=== PATIENT | male | born 1980 | race Caucasian/White ===

== ENCOUNTER → 2016-12-14 | Outpatient (CLI) | payer OTHER | LOC: BMCIMAGING 10:45 | PROVIDERS: ATTEND Internal Medicine | DX: R50.9 Fever, unspecified (principal); M79.1 Myalgia ==

== ENCOUNTER 2016-12-15 08:01 | Emergency (ER) | payer OTHER ==
--- NOTE | 2016-12-15 09:35 | EDPHY ---
H & P Stated Complaint: fever body aches for 5 day s - Personal History Current Tetanus/Diphtheria Vaccine: Yes Current Tetanus Diphtheria and Acellular Pertussis (TDAP): Yes - Medical/Surgical History Hx Asthma: No Hx Chronic Respiratory Disease: No Hx Diabetes: No Hx Cardiac Disease: No Hx Renal Disease: No Hx Cirrhosis: No Hx Alcoholism: No Hx HIV/AIDS: No Hx Splenectomy or Spleen Trauma: No - Social History Smoking Status: Never smoked HPI/ROS: Chief complaint: Cold symptoms History of present illness: 36-year-old male presents to the emergency department for cold symptoms. Patient reports the onset of symptoms 5 days ago. Symptoms have been persistent. He reports fevers, headache, body aches. He denies precipitating factors. He has used ibuprofen which helped some but has not resolve the problem. He denies other associated signs or symptoms including no ear pain, runny nose, sore throat cough, trouble breathing or rash. Review of systems: A 10 point review of systems was obtained and other than described above was negative (Robert Parks) - Physical Exam Exam: General Appearance: Alert, nontoxic. Eyes: Pupils equal and round no pallor or injection. ENT, Mouth: Tympanic membranes, external auditory canals, external ears and surrounding soft tissue including over the mastoids are unremarkable. Nasopharynx is not injected. There is no rhinorrhea. Oropharynx is mildly injected. There is no edema. There is no exudate. There is no asymmetry. The uvula is midline. No elevation of the tongue. There is no hoarseness, no drooling, no trismus, no stridor. Respiratory: There are no retractions, lungs are clear to auscultation. Cardiovascular: Regular rate and rhythm. Gastrointestinal: Abdomen is soft and nontender, no masses, bowel sounds normal. Neurological: Alert and oriented x4. Strength and sensation intact and symmetrical. No meningeal signs. Skin: Warm and dry, no rashes. Musculoskeletal: Neck is supple nontender. Extremities are symmetrical, full range of motion. Psychiatric: Patient is oriented X 3, there is no agitation. (Robert Parks) Constitutional: Initial Vital Signs Temperature (C) 36.6 C 12/15/16 08:03 Heart Rate 59 L 12/15/16 08:03 Respiratory Rate 16 12/15/16 08:03 Blood Pressure 120/55 L 12/15/16 08:03 O2 Sat (%) 97 12/15/16 08:03 O2 Delivery Mode Room Air Allergies/Adverse Reactions: No Known Allergies Allergy (Unverified 12/15/16 08:05) Home Medications: Medication Instructions Recorded Hydrocodone/APAP [Sedgwick 1 tab PO Q6H #6 tab 12/15/16 5325 (*)] Medical Decision Making - Diagnostics Imaging: I viewed and interpreted images myself - Diagnostics Imaging Results: Imaging Impressions Chest X-Ray 12/15/16 09:34 Impression: Stable and normal. No pneumonia. ED Course/Re-evaluation: The patient was evaluated and managed by the physician's blood and plasma laboratory assistant. My cosignature indicates that I reviewed the chart and I agree with the findings and plan of care as documented. I am the secondary supervising physician. ( Letitia So) Patient seen in conjunction with my secondary supervising physician Dr. Letitia So. Patient presents to the emergency department for cold symptoms. He is nontoxic. Afebrile and vital signs are stable. Physical exam is benign including no meningeal signs. Workup is unremarkable. Likely viral syndrome. Patient will be discharged home. Home care is discussed. He is asked to follow up with his primary care doctor for recheck. Return precautions are given. Patient voiced understanding and agreement with plan. (Robert Parks) Differential Diagnosis: Included but not limited to upper respiratory tract infections, lower respiratory tract infections, influenza, unlikely meningitis given lack of fever and meningeal symptoms (Robert Parks) - Data Points Laboratory Results: Laboratory Results 12/15/16 09:40 12/15/16 09:40 12/15/16 12/15/16 12/15/16 Unknown 09:40 09:40 WBC 5.88 10^3/uL 10^3/uL (3.80-9.50) RBC 4.71 10^6/uL 10^6/uL (4.40-6.38) Hgb 15.2 g/dL g/dL (13.7-17.5) Hct 42.8 % % (40.0-51.0) MCV 90.9 fL fL (81.5-99.8) MCH 32.3 pg pg (27.9-34.1) MCHC 35.5 g/dL g/dL (32.4-36.7) RDW 12.0 % % (11.5-15.2) Plt Count 151 10^3/uL 10^3/uL (150-400) MPV 11.3 fL fL (8.7-11.7) Neut % (Auto) 81.7 % H % (39.3-74.2) Lymph % (Auto) 9.9 % L % (15.0-45.0) [place] % (Auto) 8.0 % % (4.5-13.0) Eos % (Auto) 0.0 % L % (0.6-7.6) Baso % (Auto) 0.2 % L % (0.3-1.7) Nucleat RBC Rel Count 0.0 % % (0.0-0.2) Absolute Neuts (auto) 4.81 10^3/uL 10^3/uL (1.70-6.50) Absolute Lymphs (auto) 0.58 10^3/uL L 10^3/uL (1.00-3.00) Absolute Monos (auto) 0.47 10^3/uL 10^3/uL (0.30-0.80) Absolute Eos (auto) 0.00 10^3/uL L 10^3/uL (0.03-0.40) Absolute Basos (auto) 0.01 10^3/uL L 10^3/uL (0.02-0.10) Absolute Nucleated RBC 0.00 10^3/uL 10^3/uL (0-0.01) Immature Gran % 0.2 % % (0.0-1.1) Immature Gran # 0.01 10^3/uL 10^3/uL (0.00-0.10) Sodium 133 mEq/L L mEq/L (134-144) Potassium 4.6 mEq/L mEq/L (3.5-5.2) Chloride 96 mEq/L L mEq/L (97-110) Carbon Dioxide 27 mEq/l mEq/l (22-31) Anion Gap 10 mEq/L mEq/L (8-16) BUN 18 mg/dL mg/dL (7-23) Creatinine 0.8 mg/dL mg/dL (0.7-1.3) Estimated GFR > 60 Glucose 102 mg/dL H mg/dL (70-100) Calcium 9.1 mg/dL mg/dL (8.5-10.4) Influenza A & B (PCR) Group A Strep Screen Group A Strep DNA Pending 12/15/16 12/15/16 09:20 09:20 WBC RBC Hgb Hct MCV MCH MCHC RDW Plt Count MPV Neut % (Auto) Lymph % (Auto) [place] % (Auto) Eos % (Auto) Baso % (Auto) Nucleat RBC Rel Count Absolute Neuts (auto) Absolute Lymphs (auto) Absolute Monos (auto) Absolute Eos (auto) Absolute Basos (auto) Absolute Nucleated RBC Immature Gran % Immature Gran # Sodium Potassium Chloride Carbon Dioxide Anion Gap BUN Creatinine Estimated GFR Glucose Calcium Influenza A & B (PCR) NEGATIVE FOR FLU (NEGATIVE) Group A Strep Screen NEGATIVE (NEGATIVE) Group A Strep DNA Medications Given: Discontinued Medications Ibuprofen (Motrin) 600 mg PO EDNOW ONE Stop: 12/15/16 11:33 Last Admin: 12/15/16 11:40 Dose: 600 mg Departure - Departure Disposition: Home, Routine, Self-Care Clinical Impression: Viral syndrome Condition: Good Instructions: Viral Syndrome (ED) Additional Instructions: Follow-up with your primary care doctor for recheck this week In regards to pain control see the following: Use ibuprofen [600] mg [3] times a day for the next 2-3 days for pain In addition You have been prescribed [Sedgwick] for pain. [Sedgwick] contains Tylenol, do not take extra Tylenol/acetaminophen/Apap with it. It is sedating. If symptoms worsen or new symptoms develop return to the emergency room for recheck Referrals: Ector Santana MD [Primary Care Provider] - As per Instructions Prescriptions: Hydrocodone/APAP 5/325 [[place] 5/325 (*)] 1 tab PO Q6H #6 tab
[2016-12-15 09:56] LABS: % IMMATURE GRANULYOCYTES 0.2 % (0.0-1.1); ABSOLUTE IMMATURE GRANULOCYTES 0.01 10^3/uL (0.00-0.10); ADD DIFF? NO; ADD MORPH? NO; ADD SCAN? NO; ATYPICAL LYMPHOCYTE FLAG 0 (0-99); FRAGMENT RBC FLAG 0 (0-99); HEMATOCRIT 42.8 % (40.0-51.0); HEMOGLOBIN 15.2 g/dL (13.7-17.5); LEFT SHIFT FLG 40 (0-99); LIPEMIA HEMOLYSIS FLAG 90 (0-99); MEAN CELL HEMOGLOBIN 32.3 pg (27.9-34.1); MEAN CELL HEMOGLOBIN CONCENTR. 35.5 g/dL (32.4-36.7); MEAN CELL VOLUME 90.9 fL (81.5-99.8); MEAN PLATELET VOLUME 11.3 fL (8.7-11.7); PLATELET CLUMPS FLAG 0 (0-99); PLATELET COUNT 151 10^3/uL (150-400); RED BLOOD CELL COUNT 4.71 10^6/uL (4.40-6.38)
[2016-12-15 10:18] LABS: ANION GAP 10 mEq/L (8-16); CALCIUM 9.1 mg/dL (8.5-10.4); CARBON DIOXIDE 27 mEq/l (22-31); CHLORIDE 96 mEq/L (97-110); CREATININE 0.8 mg/dL (0.7-1.3); GLOMERULAR FILTRATION RATE > 60; GLUCOSE 102 mg/dL (70-100); POTASSIUM 4.6 mEq/L (3.5-5.2); SODIUM 133 mEq/L (134-144)
[2016-12-15 11:32] VITALS: BP 125/68; PULSE 54; RESP 18; TEMP 98.2; O2SAT 98
[2016-12-15] MEDS ORDERED: IBUPROFEN 600 MG TAB PO ONE (11:32)
== END 2016-12-15 11:57 | disposition home or self-care (01) ==
DX: B34.9 Viral infection, unspecified (principal)

== ENCOUNTER → 2018-03-09 | Outpatient (CLI) | payer OTHER | LOC: BMCIMAGING 08:10 | PROVIDERS: ATTEND Psychiatry & Neurology Neurology | DX: R10.11 Right upper quadrant pain (principal); K87 Disorders of gallbladder, biliary tract and pancreas in diseases classified elsewhere ==

== ENCOUNTER → 2018-05-01 | Outpatient (CLI) | payer OTHER | LOC: FIMAGING 08:37 | PROVIDERS: ATTEND Physician Assistant | DX: K21.9 Gastro-esophageal reflux disease without esophagitis (principal) | CPT/HCPCS: A9537 ==

== ENCOUNTER → 2018-08-16 | Outpatient (CLI) | payer OTHER | LOC: BMCIMAGING 13:58 | PROVIDERS: ATTEND Internal Medicine | DX: R07.9 Chest pain, unspecified (principal) | CPT/HCPCS: 71101-PO ==